=== PATIENT | female | born 1990 | race Caucasian/White ===

== ENCOUNTER 2016-06-18 13:29 | Emergency (ER) | payer OTHER | END 2016-06-18 16:03 | disposition home or self-care (01) | LOC: FER 13:29 | DX: S93.402A Sprain of unspecified ligament of left ankle, initial encounter (principal); W19.XXXA Unspecified fall, initial encounter; Y92.009 Unspecified place in unspecified non-institutional (private) residence as the place of occurrence of the external cause | CPT/HCPCS: 73590; 73610; 73630; 99283 ==

== ENCOUNTER 2016-08-08 18:20 | Emergency (ER) | payer OTHER | END 2016-08-08 20:42 | disposition home or self-care (01) | LOC: FER 18:20 | DX: K08.89 Other specified disorders of teeth and supporting structures (principal); F17.210 Nicotine dependence, cigarettes, uncomplicated | CPT/HCPCS: 99282 ==

== ENCOUNTER 2020-10-06 10:05 | Emergency (ER) | payer OTHER ==
[~2020-10-06 10:05] MED LIST: CIPRO500 M1 PO; CLEOCIN HCL150 MG PO; FLEXERIL10 MG PO; IBUPROFEN800 MG PO; NORCO 5-325 TA1 EACH PO; ZOFRAN4 MG SL
[2020-10-06 13:30] LABS: BASOPHIL 0.4 % (0-2); EOSINOPHIL 1.8 % (0-5); HCT 35.7 % (37.0-47.0); HGB 12.3 g/dl (12.5-16.0); LYMPHOCYTE 16.1 % (15-48); MCH 30.4 pg (25.0-31.0); MCHC 34.5 g/dL (32.0-36.0); MCV 88.4 fL (78.0-100.0); MPV 9.1 fL (6.0-9.5); NEUTROPHIL 76.3 % (41-80); NRBC 0; PLT 232 K/uL (150-400); RBC 4.04 M/uL (4.20-5.40); RDW 12.4 % (11.5-14.0); WBC 14.9 K/uL (4.0-10.5)
[2020-10-06 13:49] LABS: ALBUMIN 3.7 g/dL (3.4-5.0); BILIRUBIN - TOTAL 0.4 mg/dL (0.2-1.0); BUN/CREAT RATIO (CALC) 11.9 RATIO; C-REACTIVE PROTEIN 0.9 mg/dL (<=0.90); CREATININE 0.59 mg/dL (0.51-0.95); GLOBULIN (CALCULATION) 3.3 g/dL; POTASSIUM 4.1 mmol/L (3.5-5.1)
[2020-10-06] MEDS ORDERED: AUGMENTIN 875-1 EACH PO (14:56)
[2020-10-06] MEDS ORDERED: CARAFATE1 GM PO (14:56)
== END 2020-10-06 15:14 | disposition home or self-care (01) ==
LOC: FER 10:05
PROVIDERS: Internal Medicine
DX: R13.10 Dysphagia, unspecified (principal); R07.0 Pain in throat; R06.02 Shortness of breath; F17.210 Nicotine dependence, cigarettes, uncomplicated
CPT/HCPCS: 36415; 70360; 70490; 80053; 85025; 86140; 87880; 96372; J1610; J1885